=== PATIENT | female | born 1975 | race Asian ===

== ENCOUNTER 2017-10-04 06:44 | Day surgery (SDC) | payer OTHER ==
[~2017-10-04] VITALS: Ht 167.6 cm; Wt 63.5 kg
[2017-10-04 06:58] VITALS: BP 113/72
[2017-10-04 07:19] VITALS: BP 113/72
[2017-10-04 09:11] VITALS: BP 123/71
== END 2017-10-04 09:35 | disposition home or self-care (01) ==
LOC: DS 06:44 → GI 07:30 → OR 07:30 → DS 09:35
PROVIDERS: Internal Medicine Gastroenterology
PROC: 0DJD8ZZ Inspection of Lower Intestinal Tract, Via Natural or Artificial Opening Endoscopic (ICD-10-PCS; principal; 2017-10-04 07:30)
DX: Z12.11 Encounter for screening for malignant neoplasm of colon (principal); Z80.0 Family history of malignant neoplasm of digestive organs
CPT/HCPCS: 45378; J1200; J1610; J2250; J2310; J3010; J3490